=== PATIENT | male | born 1945 | race Hispanic/Latino ===

== ENCOUNTER 2017-12-29 07:16 | Day surgery (SDC) | payer MEDICARE ==
[2016-05-01 11:00] VITALS: BMI 31.1
[2017-12-29 07:39] VITALS: RESP 16
[2017-12-29] MEDS ORDERED: Propofol 10 mg/ml Inj (20 ML) ONE (08:12)
[2017-12-29] MEDS ORDERED: Lidocaine 1% Inj (20ml) ONE (09:05)
[2017-12-29] MEDS ORDERED: Sodium Chloride 0.9% 1,000 ML IV SCH (11:00)
[2017-12-29 11:32] VITALS: O2SAT 98
[2017-12-29 12:12] VITALS: BP 135/64; PULSE 66; TEMP 97.8
== END 2017-12-29 12:15 | disposition home or self-care (01) ==
LOC: ENDO 07:16
PROVIDERS: ATTEND Internal Medicine Gastroenterology
DX: K22.10 Ulcer of esophagus without bleeding (principal); K51.90 Ulcerative colitis, unspecified, without complications; D12.2 Benign neoplasm of ascending colon; K31.9 Disease of stomach and duodenum, unspecified; D64.9 Anemia, unspecified; K29.80 Duodenitis without bleeding; K29.50 Unspecified chronic gastritis without bleeding; K64.4 Residual hemorrhoidal skin tags; K64.8 Other hemorrhoids
CPT/HCPCS: 43239; 45380; 88305; 88312; 88342; J2704; J3010; J7030; J7040

== ENCOUNTER → 2018-04-05 | Day surgery (SDC) | payer MEDICARE ==
[2016-05-01 11:00] VITALS: BMI 31.1
[~2018-04-05] MED LIST: Propofol 10 mg/ml Inj (20 ML) ONE; Sodium Chloride 0.9% 1,000 ML IV SCH
[2018-04-05 08:27] VITALS: TEMP 98.1
[2018-04-05 10:19] VITALS: RESP 16
[2018-04-05 14:32] VITALS: BP 147/87; PULSE 75; O2SAT 998
== END | disposition home or self-care (01) ==
LOC: ENDO 07:37
PROVIDERS: ATTEND Internal Medicine Gastroenterology
DX: K22.10 Ulcer of esophagus without bleeding (principal); K31.9 Disease of stomach and duodenum, unspecified; I10 Essential (primary) hypertension; N40.0 Benign prostatic hyperplasia without lower urinary tract symptoms
CPT/HCPCS: 43239; 88305; 88342; J2704; J7030; J7040